=== PATIENT | female | born 1980 | race Two or more races ===

== ENCOUNTER 2024-05-03 11:30 | Outpatient (CLI) | payer OTHER | END 2024-05-03 11:36 | disposition home or self-care (01) | LOC: MAMO-SONO 11:30 | PROVIDERS: ATTEND Obstetrics & Gynecology | DX: N60.11 Diffuse cystic mastopathy of right breast (principal) ==

== ENCOUNTER → 2024-05-17 | Outpatient (CLI) | payer OTHER | END | disposition home or self-care (01) | LOC: NUCLEAR 07:13 | PROVIDERS: ATTEND Internal Medicine Gastroenterology | DX: C18.3 Malignant neoplasm of hepatic flexure (principal) ==

== ENCOUNTER 2024-05-25 14:09 | Outpatient (CLI) | payer OTHER | END 2024-05-25 14:23 | disposition home or self-care (01) | LOC: RAD 14:09 | DX: R19.4 Change in bowel habit (principal); C18.4 Malignant neoplasm of transverse colon; R59.0 Localized enlarged lymph nodes ==

== ENCOUNTER 2024-05-30 11:15 | Inpatient (IN) | payer OTHER ==
[~2024-05-30] VITALS: Ht 152.4 cm; Wt 60.8 kg
[2024-05-30] MEDS ORDERED: NORVASC10 MG PO (13:50)
[2024-05-30] MEDS ORDERED: COZAAR100 MG PO (13:50)
[2024-05-30] MEDS ORDERED: CLONIDINE HCL0.2 MG PO (13:51)
[2024-05-30] MEDS ORDERED: OMEGA-31000 MG PO (13:51)
[2024-05-30] MEDS ORDERED: FERROCITE324 MG PO (13:51)
[2024-06-04] MEDS ORDERED: FERROUS SULFAT325 MG (10:56)
[2024-06-04] MEDS ORDERED: PIPERACILLIN/TAZOBACTAM SODIUM 3.375 GM VIAL IV ONE ×2 (14:15)
[2024-06-04] MEDS ORDERED: MORPHINE SULFATE 4 MG/ML CARTRIDGE IV PRN (16:00)
[2024-06-04] MEDS ORDERED: DEXTROSE 50 % IN WATER 0.5 G/ML DISP.SYRIN IV PRN (16:00)
[2024-06-04] MEDS ORDERED: 0.9 % SODIUM CHLORIDE 1,000 ML IV SCH (16:00)
[2024-06-04] MEDS ORDERED: ONDANSETRON HCL 2 MG/ML VIAL IV PRN (16:00)
[2024-06-04] MEDS ORDERED: OxyCODONE HCL 5 MG TABLET (ROXICODONE) PO PRN (16:00)
[2024-06-04] MEDS ORDERED: POLYETHYLENE GLYCOL 3350 17 GM BLIST.PACK PO SCH (17:00)
[2024-06-04] MEDS ORDERED: HYOSCYAMINE SULFATE 0.125 MG TAB.SUBL SL SCH (17:00)
[2024-06-04] MEDS ORDERED: GABAPENTIN 300 MG CAPSULE PO SCH (17:00)
[2024-06-04] MEDS ORDERED: PIPERACILLIN/TAZOBACTAM SODIUM 3.375 GM VIAL IV SCH (18:00)
[2024-06-04] MEDS ORDERED: ENALAPRILAT DIHYDRATE 1.25 MG/ML VIAL IV PRN (18:00)
[2024-06-04 19:23] LABS: ALBUMIN 3.6 gm/dL (3.4-5.0); CALCIUM 8.8 mg/dL (8.5-10.1); CREATININE SERUM 0.86 mg/dL (0.55-1.02); GFR 71.35; MAGNESIUM 1.9 mg/dL (1.8-2.4); PHOSPHOROUS 5.2 mg/dL (2.5-4.9); POTASSIUM 3.99 mEq/L (3.5-5.1)
[2024-06-04] MEDS ORDERED: ACETAMINOPHEN 500 MG GEL..CAP PO SCH (20:00)
[2024-06-04 20:34] LABS: HEMOGLOBIN 12.6 g/dL (12.0-15.00); MEAN CELL VOLUME 81.1 fL (80.00-100.00); MEAN CORPUSCULAR HEMOGLOBIN 27.5 pg (27.00-32.0); MEAN CORPUSCULAR HGB CONC 33.9 g/dl (32.0-36.0); PLATELET COUNT 251 K/uL (150-450); RED BLOOD COUNT 4.57 M/uL (4.00-6.00)
[2024-06-04 20:35] LABS: RED CELL DISTRIBUTION WIDTH 26.6 % (11.5-14.5)
[2024-06-04] MEDS ORDERED: CELECOXIB 200 MG CAPSULE PO SCH (21:00)
[2024-06-04] MEDS ORDERED: FAMOTIDINE/PF 20 MG/2 ML VIAL IV PUSH SCH (21:00)
[2024-06-04] MEDS ORDERED: cloNIDine HCL 0.2 MG TABLET PO SCH (21:00)
[2024-06-04] MEDS ORDERED: AMLODIPINE BESYLATE 10 MG TABLET PO SCH (21:00)
[2024-06-04 22:18] VITALS: BP 144/86; O2SAT 99
[2024-06-05] VITALS: BP 108/83; O2SAT 98
[2024-06-05 06:35] LABS: HEMATOCRIT 38.8 % (36.0-45.00); HEMOGLOBIN 13.1 g/dL (12.0-15.00); MEAN CELL VOLUME 82.5 fL (80.00-100.00); MEAN CORPUSCULAR HEMOGLOBIN 27.8 pg (27.00-32.0); MEAN CORPUSCULAR HGB CONC 33.7 g/dl (32.0-36.0); PLATELET COUNT 281 K/uL (150-450); RED BLOOD COUNT 4.71 M/uL (4.00-6.00)
[2024-06-05 06:38] LABS: RED CELL DISTRIBUTION WIDTH 25.5 % (11.5-14.5)
[2024-06-05 06:39] LABS: ALBUMIN 3.7 gm/dL (3.4-5.0); CREATININE SERUM 0.78 mg/dL (0.55-1.02); GFR 79.87; MAGNESIUM 2.1 mg/dL (1.8-2.4); PHOSPHOROUS 4.9 mg/dL (2.5-4.9)
[2024-06-05 08:04] VITALS: BP 151/90; O2SAT 99
[2024-06-05] MEDS ORDERED: LOSARTAN POTASSIUM 100 MG TABLET PO SCH (09:00)
[2024-06-05 15:39] VITALS: BP 128/85; O2SAT 98
[2024-06-05] MEDS ORDERED: ENOXAPARIN SODIUM 40 MG/0.4 ML SYRINGE SUBCUTANEO SCH (17:00)
[2024-06-06 00:43] VITALS: BP 101/68; O2SAT 100
[2024-06-06 07:11] LABS: CALCIUM 8.7 mg/dL (8.5-10.1); CREATININE SERUM 0.46 mg/dL (0.55-1.02); GFR 146.9; MAGNESIUM 1.9 mg/dL (1.8-2.4); PHOSPHOROUS 2.1 mg/dL (2.5-4.9); POTASSIUM 3.95 mEq/L (3.5-5.1)
[2024-06-06 07:21] LABS: HEMATOCRIT 31.2 % (36.0-45.00); HEMOGLOBIN 10.7 g/dL (12.0-15.00); MEAN CELL VOLUME 82.3 fL (80.00-100.00); MEAN CORPUSCULAR HEMOGLOBIN 28.2 pg (27.00-32.0); MEAN CORPUSCULAR HGB CONC 34.3 g/dl (32.0-36.0); PLATELET COUNT 235 K/uL (150-450); RED BLOOD COUNT 3.79 M/uL (4.00-6.00)
[2024-06-06 07:30] LABS: RED CELL DISTRIBUTION WIDTH 25.3 % (11.5-14.5)
[2024-06-06 08:09] VITALS: BP 123/78; O2SAT 96
[2024-06-06] MEDS ORDERED: ENOXAPARIN SODIUM 40 MG/0.4 ML SYRINGE SUBCUTANEO SCH (09:00)
[2024-06-06] MEDS ORDERED: POTASSIUM PHOS,M-BASIC-D-BASIC 3 MM/ML VIAL IV ONE (11:00)
[2024-06-06 15:34] VITALS: BP 110/71; O2SAT 98
[2024-06-07 00:05] VITALS: BP 104/73; O2SAT 100
[2024-06-07 06:50] LABS: HEMATOCRIT 30.4 % (36.0-45.00); HEMOGLOBIN 10.4 g/dL (12.0-15.00); MEAN CELL VOLUME 81.7 fL (80.00-100.00); MEAN CORPUSCULAR HGB CONC 34.3 g/dl (32.0-36.0); PLATELET COUNT 233 K/uL (150-450); RED BLOOD COUNT 3.73 M/uL (4.00-6.00); RED CELL DISTRIBUTION WIDTH 24.1 % (11.5-14.5)
[2024-06-07 07:59] VITALS: BP 127/86; O2SAT 99
[2024-06-07] MEDS ORDERED: HYOSCYAMINE0.125 M1 SL (12:19)
[2024-06-07] MEDS ORDERED: PEPCID AC20 MG PO (12:20)
[2024-06-07] MEDS ORDERED: TRAM1TAB98 PO (12:20)
[2024-06-07] MEDS ORDERED: INTEGRA F CAPS1 EACH PO (12:20)
== END 2024-06-07 15:08 | disposition home or self-care (01) | DRG 330 ==
LOC: O/R 06-04 08:22 → SURH 06-04 11:15 → SURG 06-04 17:03 → SURH 06-04 19:15 → SURG 06-07 15:08
PROVIDERS: Internal Medicine Geriatric Medicine; ADMIT Surgery; ATTEND Surgery
PROC: 07BD4ZZ Excision of Aortic Lymphatic, Percutaneous Endoscopic Approach (ICD-10-PCS; 2024-06-04)
PROC: 0DTG4ZZ Resection of Left Large Intestine, Percutaneous Endoscopic Approach (ICD-10-PCS; principal; 2024-06-04 19:15)
DX: C18.5 Malignant neoplasm of splenic flexure (principal); I97.191 Other postprocedural cardiac functional disturbances following other surgery; R59.0 Localized enlarged lymph nodes; I11.9 Hypertensive heart disease without heart failure

== ENCOUNTER 2024-07-12 06:45 | Day surgery (SDC) | payer OTHER ==
[2024-07-06 12:46] LABS: INR 1.02; PARTIAL THROMBOPLASTIN TIME 25.8 SECONDS (22.0-34.0); PROTHROMBIN TIME 11.1 SECONDS (9.0-11.5)
[~2024-07-12 06:45] MED LIST: CLONIDINE HCL0.2 MG PO; COZAAR100 MG PO; FERROCITE324 MG PO; FERROUS SULFAT325 MG; HYOSCYAMINE0.125 M1 SL; INTEGRA F CAPS1 EACH PO; NORVASC10 MG PO; OMEGA-31000 MG PO; PEPCID AC20 MG PO; TRAM1TAB98 PO
[2024-07-12] MEDS ORDERED: BUPIVACAINE HCL/PF 0.25% 50 ML VIAL IJ ONE (11:30)
[2024-07-12] MEDS ORDERED: LIDOCAINE HCL 1%/EPINEPHRINE 20ML VIAL IJ ONE (11:30)
[2024-07-12] MEDS ORDERED: CEFAZOLIN SODIUM 1,000 MG VIAL IV ONE (11:30)
[2024-07-12] MEDS ORDERED: TRAM1TAB98 PO (11:40)
[2024-07-12] MEDS ORDERED: HEPARIN SODIUM,PORCINE 500 UNITS/5 ML VIAL IV ONE (11:45)
== END 2024-07-12 15:05 | disposition home or self-care (01) ==
LOC: CIR.AMB 06:45
PROVIDERS: ATTEND Surgery
DX: C18.4 Malignant neoplasm of transverse colon (principal)
CPT/HCPCS: 36561; C1751

== ENCOUNTER 2025-02-18 07:04 | Outpatient (CLI) | payer OTHER | END 2025-02-18 07:06 | disposition home or self-care (01) | LOC: TOM 07:04 | PROVIDERS: ATTEND Internal Medicine Hematology & Oncology | DX: C18.5 Malignant neoplasm of splenic flexure (principal); C77.2 Secondary and unspecified malignant neoplasm of intra-abdominal lymph nodes ==

== ENCOUNTER 2025-07-19 07:19 | Outpatient (CLI) | payer OTHER | END 2025-07-19 07:20 | disposition home or self-care (01) | LOC: NUCLEAR 07:19 | PROVIDERS: ATTEND Internal Medicine Hematology & Oncology | DX: C18.9 Malignant neoplasm of colon, unspecified (principal); C77.2 Secondary and unspecified malignant neoplasm of intra-abdominal lymph nodes ==